=== PATIENT | male | born 1960 | race Caucasian/White ===

== ENCOUNTER 2019-02-23 12:10 | Emergency (ER) | payer OTHER ==
[~2019-02-23] VITALS: Ht 172.7 cm; Wt 113.4 kg
[~2019-02-23 12:10] MED LIST: ALLO100T PO; LOSA50TA3 PO
[2019-02-23 12:38] VITALS: BP_SYST 137
--- NOTE | 2019-02-23 15:01 | NUR ---
Patient to [facility] for evaluation. Side rails up.
--- NOTE | 2019-02-23 15:02 | NUR ---
ENRIQUETA Smith examining patient.
--- NOTE | 2019-02-23 15:10 | NUR ---
Patient brought in with holding his left arm complaining of left shoulder pain ongoing for the last 4 months but worsening yesterday after throwing terell pigeons. Patient has decreased range of motion reported due to pain. Pain /. Denies any trauma to the area. Report that "it feels frozen." No other complaint/injuries per patient or as noted. Will continue to monitor
[2019-02-23] MEDS ORDERED: KETOROLAC TROMETHAMINE 60 MG/2 ML VIAL IM ONE (15:15)
[2019-02-23] MEDS ORDERED: HYDROcodone/ACETAMIN 7.5-325 MG TAB PO ONE (15:15)
[2019-02-23 15:52] VITALS: BP_SYST 136
--- NOTE | 2019-02-23 15:52 | NUR ---
Patient given written and verbal discharge instructions and verbalizes understanding. ER MD discussed with patient the results and treatment provided. Patient in stable condition. ID arm band removed Rx of Soma and Motrin given. Patient educated on pain management and to follow up with PMD in 2-3 days. Pain Scale 0/10 Opportunity for questions provided and answered. Medication side effect fact sheet provided.
== END 2019-02-23 15:52 | disposition home or self-care (01) ==
LOC: SED 12:10
DX: G89.29 Other chronic pain (principal); M25.512 Pain in left shoulder; I10 Essential (primary) hypertension; F17.290 Nicotine dependence, other tobacco product, uncomplicated; Z71.6 Tobacco abuse counseling; Z79.899 Other long term (current) drug therapy; Z90.49 Acquired absence of other specified parts of digestive tract
CPT/HCPCS: 73020; 96372; 99283; J1885